=== PATIENT | male | born 1970 | race Hispanic/Latino ===

== ENCOUNTER 2020-10-04 15:40 | Inpatient (IN) | payer BC, OTHER ==
[~2020-10-04] VITALS: Ht 180.3 cm; Wt 148.6 kg
[2020-10-04] MEDS ORDERED: ASPIRIN 325 MG TABLET ONE (16:38)
[2020-10-04 16:39] LABS: BASOPHILS % (AUTO) 0.7 % (0.0-5.0); EOSINOPHILS % (AUTO) 1.1 % (0.0-8.0); HEMATOCRIT 46.7 % (42-54); LYMPHOCYTES % (AUTO) 14.6 % (21.0-51.0); MEAN CORPUSCULAR HEMOGLOBIN 28.4 pg (27.0-33.0); MEAN CORPUSCULAR VOLUME 86.2 fL (79-99); NEUTROPHILS % (AUTO) 72.5 % (40.0-77.0); PLATELET COUNT (AUTO) 147 K/uL (130-400); RED BLOOD CELL COUNT(AUTO) 5.42 MIL/uL (4.50-6.20); RED CELL DISTRIBUTION WIDTH 15.9 % (11.0-15.5); WHITE BLOOD COUNT (AUTO) 9.6 K/uL (4.8-10.8)
[2020-10-04 16:50] LABS: INR 1.12 (0.85-1.15); PROTHROMBIN TIME 11.9 SEC (9.6-11.6)
[2020-10-04 16:51] LABS: PARTIAL THROMBOPLASTIN TIME 27.2 SEC (26.3-35.5)
[2020-10-04 17:02] LABS: CREATININE 1.3 mg/dL (0.5-1.5)
[2020-10-04 17:05] LABS: B-TYPE NATRIURETIC PEPTIDE 351 pg/mL (0-100)
[2020-10-04 17:07] LABS: ALBUMIN 3.7 g/dL (3.5-5.0); BILIRUBIN,TOTAL 0.4 mg/dL (0.2-1.0)
[2020-10-04 17:14] LABS: T4 (THYROXINE) 7.2 ug/dL (4.7-13.3); THYROID STIMULATING HORMONE 3.68 uIU/mL (0.36-3.74)
[2020-10-04] MEDS: NITROGLYCERIN 1GM OINT 1 INCH/1GM TD SCH (21:15)
[2020-10-04 21:17] LABS: APPEARANCE,URINE Clear (CLEAR); BILIRUBIN,URINE Negative (NEGATIVE); COLOR,URINE Yellow (YELLOW); GLUCOSE, URINE (UA) Negative (NEGATIVE); KETONES,URINE Negative (NEGATIVE); LEUKOCYTE ESTERASE ,URINE Small (NEGATIVE); NITRATE,URINE Negative (NEGATIVE); OCCULT BLOOD,URINE Negative (NEGATIVE); PH,URINE 5.5 (5.0-8.0); PROTEIN,URINE Negative (NEGATIVE)
[2020-10-04 21:25] LABS: AMPHET/METH SCREEN,URINE NEGATIVE (NEGATIVE); BARBITURATE SCREEN, URINE NEGATIVE (NEGATIVE); BENZODIAZEPINES SCREEN,URINE NEGATIVE (NEGATIVE); CANNABINOID SCREEN,URINE NEGATIVE (NEGATIVE); COCAINE SCREEN,URINE NEGATIVE (NEGATIVE); OPIATE SCREEN,URINE NEGATIVE (NEGATIVE); PHENCYCLIDINE SCREEN,URINE NEGATIVE (NEGATIVE)
[2020-10-04 21:49] LABS: BACTERIA,URINE Rare /HPF (None Seen); RBC,URINE 0-1 /HPF (0-1); SQUAMOUS EPITHELIAL CELL,UR Rare /HPF (0-2); WBC,URINE 0-1 /HPF (0-1)
[2020-10-04] MEDS: FUROSEMIDE 40MG VIAL IV SCH (22:15)
[2020-10-04 22:21] LABS: HEMOGLOBIN A1C 7.7 % (4.0-6.0)
[2020-10-04 23:01] LABS: TROPONIN I 0.07 ng/mL (0.00-0.06)
[2020-10-05] MEDS ORDERED: FUROSEMIDE 40MG VIAL ONE (00:22)
[2020-10-05] MEDS: NITROGLYCERIN 1GM OINT 1 INCH/1GM TD SCH ×3 (05:15→21:15)
[2020-10-05 07:08] LABS: CREATININE 1.1 mg/dL (0.5-1.5); TROPONIN I 0.06 ng/mL (0.00-0.06)
[2020-10-05] MEDS: INSULIN HUMULIN R 100 UNIT/ML 3ML SQ SCH ×4 (07:30→21:00)
[2020-10-05] MEDS ORDERED: METFORMIN HCL 500 MG TABLET PO SCH (08:00)
[2020-10-05] MEDS: ASPIRIN 81 MG EC TAB PO SCH (09:00)
[2020-10-05] MEDS: CARVEDILOL 12.5 MG TABLET PO SCH ×2 (09:00→21:00)
[2020-10-05] MEDS ORDERED: AMIODARONE 200 MG TABLET PO SCH (09:00)
[2020-10-05] MEDS: FAMOTIDINE 20MG TAB PO SCH (09:00)
[2020-10-05] MEDS ORDERED: APIXABAN 5 MG TABLET PO SCH (09:00)
[2020-10-05] MEDS: TORSEMIDE 20 MG TAB PO SCH (09:00)
[2020-10-05] MEDS: SPIRONOLACTONE 25 MG TAB PO SCH (09:00)
[2020-10-05] MEDS ORDERED: ASPIRIN 81MG CHEW TAB ONE (09:25)
[2020-10-05] MEDS ORDERED: FAMOTIDINE 20MG TAB ONE (09:25)
[2020-10-05] MEDS ORDERED: AMIODARONE 200 MG TABLET PO ONE (09:25)
[2020-10-05] MEDS ORDERED: CARVEDILOL 12.5 MG TABLET PO ONE ×2 (09:26→21:13)
[2020-10-05] MEDS ORDERED: METFORMIN HCL 500 MG TABLET ONE ×2 (09:26→17:10)
[2020-10-05] MEDS ORDERED: CARVEDILOL 6.25 MG TABLET PO ONE ×2 (09:26→21:13)
[2020-10-05] MEDS ORDERED: SPIRONOLACTONE 25 MG TAB ONE ×2 (09:26→09:58)
[2020-10-05] MEDS ORDERED: GLIM1TAB18 PO (10:05)
[2020-10-05] MEDS ORDERED: SACU1TAB7 PO (10:05)
[2020-10-05] MEDS ORDERED: DIGO125T71 PO (10:05)
[2020-10-05] MEDS ORDERED: DIGOXIN 125 MCG TABLET PO SCH (12:27)
[2020-10-05] MEDS ORDERED: INSULIN HUMULIN R 100 UNIT/ML 3ML ONE (12:41)
[2020-10-05] MEDS ORDERED: NITROGLYCERIN 1GM OINT 1 INCH/1GM TD ONE ×2 (12:45→22:04)
[2020-10-05 14:33] LABS: TROPONIN I 0.05 ng/mL (0.00-0.06)
[2020-10-05] MEDS ORDERED: TICAGRELOR 90 MG TABLET PO SCH (17:00)
[2020-10-05] MEDS ORDERED: TICAGRELOR 90 MG TABLET ONE (17:29)
[2020-10-05] MEDS: DIGOXIN 125 MCG TABLET PO SCH (21:00)
[2020-10-05] MEDS: CIPROFLOXACIN HCL 0.3% 2.5ML DROPS OP SCH (21:00)
[2020-10-05] MEDS: TICAGRELOR 90 MG TABLET PO SCH (21:00)
[2020-10-05] MEDS ORDERED: ENOXAPARIN SODIUM 120 MG/0.8ML SQ SCH (21:00)
[2020-10-05] MEDS ORDERED: ENOXAPARIN SODIUM 120 MG/0.8ML SQ ONE (21:13)
[2020-10-05] MEDS: FUROSEMIDE 40MG VIAL IV SCH (22:15)
[2020-10-06] VITALS (14 sets, daily range): BP systolic 107–146; BP diastolic 56–82
[2020-10-06] MEDS ORDERED: APIX5TAB PO (01:23)
[2020-10-06] MEDS ORDERED: SPIR50TA5 PO (01:26)
[2020-10-06] MEDS ORDERED: TORS20TA4 PO (01:26)
[2020-10-06] MEDS ORDERED: ACET325C6 PO (01:26)
[2020-10-06] MEDS ORDERED: CARV25TA PO (01:26)
[2020-10-06] MEDS ORDERED: AMIO200T68 PO (01:26)
[2020-10-06] MEDS ORDERED: ASPI-1197 PO (01:26)
[2020-10-06] MEDS: NITROGLYCERIN 1GM OINT 1 INCH/1GM TD SCH ×3 (05:21→21:20)
[2020-10-06] MEDS: INSULIN HUMULIN R 100 UNIT/ML 3ML SQ SCH ×4 (05:37→21:26)
[2020-10-06 06:39] LABS: HEMATOCRIT 48.2 % (42-54); MEAN CORPUSCULAR HEMOGLOBIN 27.9 pg (27.0-33.0); MEAN CORPUSCULAR HGB CONC 32.2 g/dL (32.0-36.0); MEAN CORPUSCULAR VOLUME 86.8 fL (79-99); RED BLOOD CELL COUNT(AUTO) 5.55 MIL/uL (4.50-6.20); RED CELL DISTRIBUTION WIDTH 16.1 % (11.0-15.5); WHITE BLOOD COUNT (AUTO) 9.2 K/uL (4.8-10.8)
[2020-10-06 07:05] LABS: ALBUMIN 3.4 g/dL (3.5-5.0); BILIRUBIN,TOTAL 0.4 mg/dL (0.2-1.0); CREATININE 1.6 mg/dL (0.5-1.5); POTASSIUM 4.5 mmol/L (3.5-5.1)
[2020-10-06] MEDS ORDERED: NICARDIPINE 25MG INJ IV ONE (07:44)
[2020-10-06] MEDS ORDERED: HEPARIN 10,000 UNIT/10ML (1,000 UNIT/ML) VIAL ONE (07:44)
[2020-10-06] MEDS ORDERED: FENTANYL CITRATE PF 50 MCG/1 ML 2ML VIAL ONE (07:44)
[2020-10-06] MEDS ORDERED: LIDOCAINE HCL 400MG/20ML VIAL ONE (07:44)
[2020-10-06] MEDS ORDERED: MIDAZOLAM HCL 1 MG/ML 2ML VIAL ONE (07:44)
[2020-10-06] MEDS ORDERED: NITROGLYCERIN 2 MG VIAL IV ONE (07:44)
[2020-10-06] MEDS ORDERED: IOHEXOL 350 MG/ML 100ML INFUS..BTL IV ONE (07:44)
[2020-10-06] MEDS: VALSARTAN PO SCH (09:00)
[2020-10-06] MEDS: SACUBITRIL PO SCH (09:00)
[2020-10-06] MEDS ORDERED: 0.9%NACL 1000ML 1,000 ML IV SCH (09:45)
[2020-10-06] MEDS: CIPROFLOXACIN HCL 0.3% 2.5ML DROPS OP SCH ×2 (10:55→21:18)
[2020-10-06] MEDS: ASPIRIN 81 MG EC TAB PO SCH (14:26)
[2020-10-06] MEDS: TICAGRELOR 90 MG TABLET PO SCH ×2 (14:27→21:18)
[2020-10-06] MEDS: GLIMEPIRIDE 2 MG TABLET PO SCH (14:29)
[2020-10-06] MEDS: DIGOXIN 125 MCG TABLET PO SCH ×2 (14:30→21:18)
[2020-10-06] MEDS: SPIRONOLACTONE 25 MG TAB PO SCH (14:31)
[2020-10-06] MEDS: FAMOTIDINE 20MG TAB PO SCH (14:31)
[2020-10-06] MEDS: TORSEMIDE 20 MG TAB PO SCH (14:31)
[2020-10-06] MEDS: CARVEDILOL 12.5 MG TABLET PO SCH ×2 (14:39→21:19)
[2020-10-06] MEDS: APIXABAN 5 MG TABLET PO SCH (21:19)
[2020-10-06] MEDS: FUROSEMIDE 40MG VIAL IV SCH (22:40)
[2020-10-07 03:44] VITALS: BP 112/77
[2020-10-07 05:14] LABS: HEMATOCRIT 46.5 % (42-54); MEAN CORPUSCULAR HEMOGLOBIN 28.3 pg (27.0-33.0); MEAN CORPUSCULAR HGB CONC 33.1 g/dL (32.0-36.0); MEAN CORPUSCULAR VOLUME 85.5 fL (79-99); RED BLOOD CELL COUNT(AUTO) 5.44 MIL/uL (4.50-6.20); RED CELL DISTRIBUTION WIDTH 15.9 % (11.0-15.5); WHITE BLOOD COUNT (AUTO) 8.8 K/uL (4.8-10.8)
[2020-10-07] MEDS: NITROGLYCERIN 1GM OINT 1 INCH/1GM TD SCH ×3 (05:26→21:15)
[2020-10-07] MEDS: INSULIN HUMULIN R 100 UNIT/ML 3ML SQ SCH ×4 (05:27→20:57)
[2020-10-07 05:33] LABS: ALBUMIN 3.5 g/dL (3.5-5.0); BILIRUBIN,TOTAL 0.6 mg/dL (0.2-1.0); CREATININE 2.2 mg/dL (0.5-1.5); MAGNESIUM 1.9 mg/dL (1.80-2.40); POTASSIUM 4.8 mmol/L (3.5-5.1); TOTAL PROTEIN, SERUM 7.4 g/dL (6.0-8.3)
[2020-10-07 07:30] VITALS: BP 152/98
[2020-10-07] MEDS ORDERED: ISOSORBIDE MONO 60MG SR TAB PO ONE (08:54)
[2020-10-07] MEDS: TORSEMIDE 20 MG TAB PO SCH (08:55)
[2020-10-07] MEDS: APIXABAN 5 MG TABLET PO SCH ×2 (08:56→20:52)
[2020-10-07] MEDS: TICAGRELOR 90 MG TABLET PO SCH ×2 (08:56→20:51)
[2020-10-07] MEDS: GLIMEPIRIDE 2 MG TABLET PO SCH (08:56)
[2020-10-07] MEDS: ASPIRIN 81 MG EC TAB PO SCH (08:57)
[2020-10-07] MEDS: FAMOTIDINE 20MG TAB PO SCH (08:57)
[2020-10-07] MEDS: DIGOXIN 125 MCG TABLET PO SCH ×2 (08:58→20:52)
[2020-10-07] MEDS: SPIRONOLACTONE 25 MG TAB PO SCH (08:59)
[2020-10-07] MEDS: CARVEDILOL 12.5 MG TABLET PO SCH ×2 (08:59→20:52)
[2020-10-07] MEDS: VALSARTAN PO SCH (09:05)
[2020-10-07] MEDS: SACUBITRIL PO SCH (09:05)
[2020-10-07] MEDS: CIPROFLOXACIN HCL 0.3% 2.5ML DROPS OP SCH ×2 (09:09→20:51)
[2020-10-07] MEDS: ISOSORBIDE MONO 60MG SR TAB PO SCH (09:30)
[2020-10-07 11:00] VITALS: BP 109/59
[2020-10-07] MEDS: CLINDAMYCIN IVPB 600MG/50ML 50 ML IV SCH ×3 (13:21→23:52)
[2020-10-07 16:00] VITALS: BP 115/54
[2020-10-07 19:33] VITALS: BP 121/64
[2020-10-07] MEDS: FUROSEMIDE 40MG VIAL IV SCH (22:15)
[2020-10-07 23:33] VITALS: BP 110/59
[2020-10-08 03:50] VITALS: BP 122/70
[2020-10-08] MEDS: NITROGLYCERIN 1GM OINT 1 INCH/1GM TD SCH ×2 (05:06→13:15)
[2020-10-08] MEDS: INSULIN HUMULIN R 100 UNIT/ML 3ML SQ SCH ×4 (05:36→21:49)
[2020-10-08] MEDS: CLINDAMYCIN IVPB 600MG/50ML 50 ML IV SCH ×3 (05:47→22:07)
[2020-10-08 08:00] VITALS: BP 143/70
[2020-10-08 09:26] LABS: CREATININE 1.7 mg/dL (0.5-1.5); POTASSIUM 4.8 mmol/L (3.5-5.1)
[2020-10-08 09:33] LABS: ALBUMIN 3.7 g/dL (3.5-5.0); BILIRUBIN,TOTAL 0.8 mg/dL (0.2-1.0); TOTAL PROTEIN, SERUM 7.4 g/dL (6.0-8.3)
[2020-10-08] MEDS: APIXABAN 5 MG TABLET PO SCH ×2 (10:27→21:42)
[2020-10-08] MEDS: ASPIRIN 81 MG EC TAB PO SCH (10:27)
[2020-10-08] MEDS: TICAGRELOR 90 MG TABLET PO SCH ×2 (10:28→21:43)
[2020-10-08] MEDS: ISOSORBIDE MONO 60MG SR TAB PO SCH (10:28)
[2020-10-08] MEDS: FAMOTIDINE 20MG TAB PO SCH (10:28)
[2020-10-08] MEDS: GLIMEPIRIDE 2 MG TABLET PO SCH (10:29)
[2020-10-08] MEDS: SPIRONOLACTONE 25 MG TAB PO SCH (10:30)
[2020-10-08] MEDS: DIGOXIN 125 MCG TABLET PO SCH ×2 (10:31→21:44)
[2020-10-08] MEDS: TORSEMIDE 20 MG TAB PO SCH (10:32)
[2020-10-08] MEDS: CARVEDILOL 12.5 MG TABLET PO SCH ×2 (10:32→21:43)
[2020-10-08] MEDS: VALSARTAN PO SCH (10:33)
[2020-10-08] MEDS: CIPROFLOXACIN HCL 0.3% 2.5ML DROPS OP SCH ×2 (10:33→21:44)
[2020-10-08] MEDS: SACUBITRIL PO SCH (10:33)
[2020-10-08 12:00] VITALS: BP 123/66
[2020-10-08] MEDS ORDERED: AMIODARONE 900MG VIAL 360 MG in DEXTROSE 5%-WATER 200 ML IV SCH (15:30)
[2020-10-08] MEDS ORDERED: AMIODARONE 150MG VIAL 150 MG in DEXTROSE 5%-WATER 100 ML IV SCH (15:30)
[2020-10-08 16:00] VITALS: BP 111/66
[2020-10-08 19:19] VITALS: BP 139/78
[2020-10-08] MEDS ORDERED: AMIODARONE 900MG VIAL 450 MG in DEXTROSE 5%-WATER 250 ML IV SCH (22:30)
[2020-10-08 23:31] VITALS: BP 127/61
[2020-10-09] VITALS (11 sets, daily range): BP systolic 108–149; BP diastolic 64–80
[2020-10-09] MEDS: CLINDAMYCIN IVPB 600MG/50ML 50 ML IV SCH (04:03)
[2020-10-09 05:53] LABS: HEMATOCRIT 45.9 % (42-54); MEAN CORPUSCULAR HEMOGLOBIN 27.8 pg (27.0-33.0); MEAN CORPUSCULAR HGB CONC 32.2 g/dL (32.0-36.0); MEAN CORPUSCULAR VOLUME 86.1 fL (79-99); RED BLOOD CELL COUNT(AUTO) 5.33 MIL/uL (4.50-6.20); RED CELL DISTRIBUTION WIDTH 16.1 % (11.0-15.5); WHITE BLOOD COUNT (AUTO) 7.8 K/uL (4.8-10.8)
[2020-10-09 06:10] LABS: CREATININE 1.5 mg/dL (0.5-1.5); MAGNESIUM 2.1 mg/dL (1.80-2.40); POTASSIUM 4.2 mmol/L (3.5-5.1)
[2020-10-09] MEDS: INSULIN HUMULIN R 100 UNIT/ML 3ML SQ SCH ×2 (06:17→12:20)
[2020-10-09] MEDS ORDERED: AMIODARONE 200 MG TABLET PO SCH (09:00)
[2020-10-09] MEDS ORDERED: PROPOFOL 10 MG/ML 20ML VIAL IV ONE (09:46)
[2020-10-09] MEDS ORDERED: LIDOCAINE HCL 1% 20 ML VIAL ONE (09:46)
[2020-10-09] MEDS: FAMOTIDINE 20MG TAB PO SCH (12:00)
[2020-10-09] MEDS ORDERED: CLINDAMYCIN IVPB 600MG/50ML 50 ML IV SCH (12:00)
[2020-10-09] MEDS: ASPIRIN 81 MG EC TAB PO SCH (12:01)
[2020-10-09] MEDS: DIGOXIN 125 MCG TABLET PO SCH (12:01)
[2020-10-09] MEDS: TORSEMIDE 20 MG TAB PO SCH (12:01)
[2020-10-09] MEDS: APIXABAN 5 MG TABLET PO SCH (12:02)
[2020-10-09] MEDS: TICAGRELOR 90 MG TABLET PO SCH (12:02)
[2020-10-09] MEDS: ISOSORBIDE MONO 60MG SR TAB PO SCH (12:02)
[2020-10-09] MEDS: SPIRONOLACTONE 25 MG TAB PO SCH (12:03)
[2020-10-09] MEDS: CARVEDILOL 12.5 MG TABLET PO SCH (12:03)
[2020-10-09] MEDS: GLIMEPIRIDE 2 MG TABLET PO SCH (12:04)
[2020-10-09] MEDS: VALSARTAN PO SCH (12:05)
[2020-10-09] MEDS: SACUBITRIL PO SCH (12:05)
[2020-10-09] MEDS: CIPROFLOXACIN HCL 0.3% 2.5ML DROPS OP SCH (12:21)
[2020-10-09] MEDS ORDERED: CARV12.511 PO (12:43)
[2020-10-09] MEDS ORDERED: ISOS60TA77 PO (12:43)
[2020-10-09] MEDS ORDERED: TICA90TA PO (12:43)
== END 2020-10-09 18:34 | disposition home or self-care (01) | DRG 280 ==
LOC: EDH 15:40 → EDHIP 21:14 → 4DH 10-06 00:31
PROVIDERS: ADMIT Internal Medicine; ATTEND Internal Medicine
PROC: 4A023N7 Measurement of Cardiac Sampling and Pressure, Left Heart, Percutaneous Approach (ICD-10-PCS; principal; 2020-10-06)
PROC: B2111ZZ Fluoroscopy of Multiple Coronary Arteries using Low Osmolar Contrast (ICD-10-PCS; 2020-10-06)
PROC: B2181ZZ Fluoroscopy of Left Internal Mammary Bypass Graft using Low Osmolar Contrast (ICD-10-PCS; 2020-10-06)
PROC: B2131ZZ Fluoroscopy of Multiple Coronary Artery Bypass Grafts using Low Osmolar Contrast (ICD-10-PCS; 2020-10-06)
PROC: B41F1ZZ Fluoroscopy of Right Lower Extremity Arteries using Low Osmolar Contrast (ICD-10-PCS; 2020-10-06)
PROC: 5A09357 Assistance with Respiratory Ventilation, Less than 24 Consecutive Hours, Continuous Positive Airway Pressure (ICD-10-PCS; 2020-10-06)
PROC: 5A09357 Assistance with Respiratory Ventilation, Less than 24 Consecutive Hours, Continuous Positive Airway Pressure (ICD-10-PCS; 2020-10-07)
PROC: 5A2204Z Restoration of Cardiac Rhythm, Single (ICD-10-PCS; 2020-10-09)
DX: T82.857A Stenosis of other cardiac prosthetic devices, implants and grafts, initial encounter (principal); I21.4 Non-ST elevation (NSTEMI) myocardial infarction; I50.41 Acute combined systolic (congestive) and diastolic (congestive) heart failure; N17.9 Acute kidney failure, unspecified; I48.19 Other persistent atrial fibrillation; I13.0 Hypertensive heart and chronic kidney disease with heart failure and stage 1 through stage 4 chronic kidney disease, or unspecified chronic kidney disease; Z68.42 Body mass index [BMI] 45.0-49.9, adult; L03.213 Periorbital cellulitis; I24.9 Acute ischemic heart disease, unspecified; D68.69 Other thrombophilia; E78.5 Hyperlipidemia, unspecified; I25.5 Ischemic cardiomyopathy; I25.10 Atherosclerotic heart disease of native coronary artery without angina pectoris; H00.016 Hordeolum externum left eye, unspecified eyelid; E11.22 Type 2 diabetes mellitus with diabetic chronic kidney disease; F17.210 Nicotine dependence, cigarettes, uncomplicated; G47.33 Obstructive sleep apnea (adult) (pediatric); Y83.2 Surgical operation with anastomosis, bypass or graft as the cause of abnormal reaction of the patient, or of later complication, without mention of misadventure at the time of the procedure; E66.01 Morbid (severe) obesity due to excess calories; N18.9 Chronic kidney disease, unspecified; E87.8 Other disorders of electrolyte and fluid balance, not elsewhere classified; Z95.1 Presence of aortocoronary bypass graft; Z79.01 Long term (current) use of anticoagulants; Z79.899 Other long term (current) drug therapy; Z79.84 Long term (current) use of oral hypoglycemic drugs; Z79.82 Long term (current) use of aspirin; Y92.89 Other specified places as the place of occurrence of the external cause
CPT/HCPCS: 36415; 70480; 71045; 80048; 80053; 80061; 80305; 81001; 82550; 82948; 83036; 83735; 83874; 83880; 84145; 84436; 84443; 84484; 85025; 85027; 85610; 85730; 92960; 93005; 93458; 93459; 94660; 99156; 99157; C1894; G0378; J0282; J1644; J1650; J1815; J1940; J2250; J2704; J3010; J3490; J7060; Q9967

== ENCOUNTER 2021-04-21 20:26 | Observation (INO) | payer BC ==
[~2021-04-21] VITALS: Ht 180.3 cm; Wt 146.3 kg
[~2021-04-21 20:26] MED LIST: ACET325C6 PO; AMIO200T6 PO; APIX5TAB PO; ASPI-1197 PO; CARV12.511 PO; DIGO125T71 PO; GLIM1TAB18 PO; ISOS60TA77 PO; SPIR50TA5 PO; TICA90TA PO; TORS20TA4 PO
[2021-04-21 21:10] VITALS: BP 119/74
[2021-04-21 21:29] LABS: INR 1.16 (0.85-1.15); PROTHROMBIN TIME 12.5 SEC (9.6-11.6)
[2021-04-21 21:30] LABS: CREATININE 1.7 mg/dL (0.5-1.5); PARTIAL THROMBOPLASTIN TIME 25.1 SEC (26.3-35.5); POTASSIUM 4.8 mmol/L (3.5-5.1)
[2021-04-21 21:35] LABS: ALBUMIN 3.6 g/dL (3.5-5.0); BILIRUBIN,TOTAL 0.6 mg/dL (0.2-1.0); TOTAL PROTEIN, SERUM 7.6 g/dL (6.0-8.3)
[2021-04-21 21:41] LABS: BASOPHILS % (AUTO) 0.7 % (0.0-5.0); EOSINOPHILS % (AUTO) 1.1 % (0.0-8.0); HEMATOCRIT 44.8 % (42-54); LYMPHOCYTES % (AUTO) 14.8 % (21.0-51.0); MEAN CORPUSCULAR HEMOGLOBIN 28.3 pg (27.0-33.0); MEAN CORPUSCULAR HGB CONC 32.6 g/dL (32.0-36.0); MEAN CORPUSCULAR VOLUME 86.8 fL (79-99); MONOCYTES % (AUTO) 8.9 % (3.0-13.0); NEUTROPHILS % (AUTO) 70.8 % (40.0-77.0); PLATELET COUNT (AUTO) 190 K/uL (130-400); RED BLOOD CELL COUNT(AUTO) 5.16 MIL/uL (4.50-6.20); RED CELL DISTRIBUTION WIDTH 16.6 % (11.0-15.5); WHITE BLOOD COUNT (AUTO) 12.4 K/uL (4.8-10.8)
[2021-04-21 21:57] LABS: B-TYPE NATRIURETIC PEPTIDE 470 pg/mL (0-100)
[2021-04-21] MEDS ORDERED: NITROGLYCERIN 0.4 MG SL TAB SL ONE (22:20)
[2021-04-21] MEDS ORDERED: ACETAMINOPHEN 325 MG TAB ONE (22:20)
[2021-04-21] MEDS ORDERED: ACETAMINOPHEN 325 MG TAB PO PRN (22:30)
[2021-04-21] MEDS ORDERED: NITROGLYCERIN 0.4 MG SL TAB SL PRN (22:30)
[2021-04-22] VITALS (11 sets, daily range): BP systolic 108–162; BP diastolic 52–90
[2021-04-22 00:11] LABS: APPEARANCE,URINE Clear (CLEAR); BILIRUBIN,URINE Negative (NEGATIVE); COLOR,URINE Yellow (YELLOW); GLUCOSE, URINE (UA) 500 mg/dL (NEGATIVE); KETONES,URINE Negative (NEGATIVE); LEUKOCYTE ESTERASE ,URINE Trace (NEGATIVE); NITRATE,URINE Negative (NEGATIVE); OCCULT BLOOD,URINE Negative (NEGATIVE); PH,URINE 5.5 (5.0-8.0); PROTEIN,URINE Trace mg/dL (NEGATIVE)
[2021-04-22 00:20] LABS: RBC,URINE 0-1 /HPF (0-1)
[2021-04-22 00:21] LABS: BACTERIA,URINE None Seen /HPF (None Seen); SQUAMOUS EPITHELIAL CELL,UR Few /HPF (0-2)
[2021-04-22] MEDS ORDERED: VITAD50000 PO (04:15)
[2021-04-22] MEDS ORDERED: RANO500T2 PO (04:15)
[2021-04-22] MEDS ORDERED: CARV25TA PO (04:15)
[2021-04-22] MEDS ORDERED: METF-446 PO (04:15)
[2021-04-22] MEDS ORDERED: HYDR-4153 PO (04:15)
[2021-04-22] MEDS ORDERED: FAMO-136 PO (04:15)
[2021-04-22] MEDS ORDERED: CLOP75TA32 PO (04:15)
[2021-04-22] MEDS ORDERED: ATOR10 PO (04:15)
[2021-04-22] MEDS: PHARMACY COMMUNICATION MISC SCH ×3 (05:00→20:51)
[2021-04-22 07:10] LABS: BASOPHILS % (AUTO) 0.7 % (0.0-5.0); LYMPHOCYTES % (AUTO) 15.4 % (21.0-51.0); MEAN CORPUSCULAR HEMOGLOBIN 28.1 pg (27.0-33.0); MEAN CORPUSCULAR HGB CONC 32.3 g/dL (32.0-36.0); MONOCYTES % (AUTO) 8.6 % (3.0-13.0); NEUTROPHILS % (AUTO) 69.9 % (40.0-77.0); PLATELET COUNT (AUTO) 163 K/uL (130-400); RED BLOOD CELL COUNT(AUTO) 5.06 MIL/uL (4.50-6.20); WHITE BLOOD COUNT (AUTO) 10.6 K/uL (4.8-10.8)
[2021-04-22 07:38] LABS: CREATININE 1.5 mg/dL (0.5-1.5); POTASSIUM 4.5 mmol/L (3.5-5.1)
[2021-04-22 07:54] LABS: B-TYPE NATRIURETIC PEPTIDE 429 pg/mL (0-100)
[2021-04-22] MEDS: METFORMIN HCL 500 MG TABLET PO SCH ×2 (08:00→16:52)
[2021-04-22] MEDS: FAMOTIDINE 20MG TAB PO SCH (09:00)
[2021-04-22] MEDS: RANOLAZINE 500 MG TAB.SR.12H PO SCH ×2 (09:00→19:40)
[2021-04-22] MEDS: SPIRONOLACTONE 25 MG TAB PO SCH (09:00)
[2021-04-22] MEDS: ISOSORBIDE MONO 60MG SR TAB PO SCH (09:00)
[2021-04-22] MEDS ORDERED: TORSEMIDE 20 MG TAB PO SCH ×2 (09:00→21:00)
[2021-04-22] MEDS: HYDRALAZINE 25MG TABLET PO SCH ×3 (09:00→19:39)
[2021-04-22] MEDS: GLIMEPIRIDE 2 MG TABLET PO SCH (09:00)
[2021-04-22] MEDS: CARVEDILOL 25 MG TABLET PO SCH ×2 (09:00→19:37)
[2021-04-22] MEDS: DIGOXIN 125 MCG TABLET PO SCH ×2 (09:00→19:40)
[2021-04-22] MEDS ORDERED: ERGOCALCIFEROL (VITAMIN D2) 50,000 UNIT CAPSULE PO SCH (09:00)
[2021-04-22] MEDS ORDERED: HEPARIN 1,000 UNIT VIAL ONE (16:13)
[2021-04-22] MEDS ORDERED: MIDAZOLAM HCL 1 MG/ML 2ML VIAL ONE ×2 (16:14→17:06)
[2021-04-22] MEDS ORDERED: MEPERIDINE-PF 25 MG/ML SYG ONE ×2 (16:14→17:06)
[2021-04-22] MEDS ORDERED: LIDOCAINE HCL 400MG/20ML VIAL ONE (16:14)
[2021-04-22] MEDS ORDERED: ALPRAZOLAM 0.25 MG TABLET PO ONE (19:30)
[2021-04-22] MEDS: APIXABAN 5 MG TABLET PO SCH (19:41)
[2021-04-22] MEDS ORDERED: ATORVASTATIN 20 MG TABLET PO SCH (21:00)
[2021-04-23] VITALS: BP 162/88
[2021-04-23 04:00] VITALS: BP 120/81
[2021-04-23] MEDS: PHARMACY COMMUNICATION MISC SCH ×2 (04:05→12:26)
[2021-04-23] MEDS: CARVEDILOL 25 MG TABLET PO SCH (08:44)
[2021-04-23] MEDS: APIXABAN 5 MG TABLET PO SCH (08:44)
[2021-04-23] MEDS: METFORMIN HCL 500 MG TABLET PO SCH (08:44)
[2021-04-23] MEDS: FAMOTIDINE 20MG TAB PO SCH (08:44)
[2021-04-23] MEDS: RANOLAZINE 500 MG TAB.SR.12H PO SCH (08:44)
[2021-04-23 08:45] VITALS: BP 101/79
[2021-04-23] MEDS: DIGOXIN 125 MCG TABLET PO SCH (08:45)
[2021-04-23] MEDS: SPIRONOLACTONE 25 MG TAB PO SCH (08:45)
[2021-04-23] MEDS: HYDRALAZINE 25MG TABLET PO SCH (08:45)
[2021-04-23] MEDS: ISOSORBIDE MONO 60MG SR TAB PO SCH (08:45)
[2021-04-23] MEDS: GLIMEPIRIDE 2 MG TABLET PO SCH (08:46)
[2021-04-23] MEDS ORDERED: SPIR50TA5 PO (08:52)
[2021-04-23] MEDS ORDERED: ASPIRIN 81MG CHEW TAB PO SCH (09:00)
[2021-04-23] MEDS ORDERED: CLOPIDOGREL 75MG TAB PO SCH (09:00)
[2021-04-23 11:34] VITALS: BP 154/85
== END 2021-04-23 12:30 | disposition home or self-care (01) ==
LOC: EDH 20:26 → EDHIP 20:54 → INTOOBSV 20:54 → 4DH 04-22 13:55
PROVIDERS: ADMIT Internal Medicine Cardiovascular Disease; ATTEND Internal Medicine Cardiovascular Disease
DX: I25.5 Ischemic cardiomyopathy (principal); I25.10 Atherosclerotic heart disease of native coronary artery without angina pectoris; I48.91 Unspecified atrial fibrillation; I11.0 Hypertensive heart disease with heart failure; I50.22 Chronic systolic (congestive) heart failure; E78.5 Hyperlipidemia, unspecified; E66.01 Morbid (severe) obesity due to excess calories; G47.33 Obstructive sleep apnea (adult) (pediatric); Z95.1 Presence of aortocoronary bypass graft; Z68.42 Body mass index [BMI] 45.0-49.9, adult
CPT/HCPCS: 36415 ×2; 71045; 80048; 80053; 81001; 82948 ×5; 83880 ×2; 85025 ×2; 85610; 85730 ×2; 93005 ×2; 93650; A4649 ×2; C1732; C1894; G0378 ×23; J1644 ×2; J2175 ×2; J2250 ×2; J3490; 99156; 99157